=== PATIENT | female | born 1985 | race Caucasian/White ===

== ENCOUNTER → 2017-09-20 | Outpatient (CLI) | payer BC ==
[2017-09-20 13:28] LABS: AUTOMATED NEUTROPHIL # 4.3 TH/MM3 (1.8-7.7); BASOPHIL % 0.3 % (0.0-2.0); EOSINOPHIL # 0.2 TH/MM3 (0-0.4); EOSINOPHIL % 2.7 % (0.0-4.0); HEMATOCRIT 36.3 % (35.0-46.0); HEMOGLOBIN 12.3 GM/DL (11.6-15.3); LYMPH % 28.7 % (9.0-44.0); MEAN CELL VOLUME 87.6 FL (80.0-100.0); MEAN CORPUSCULAR HEMOGLOBIN 29.7 PG (27.0-34.0); MEAN CORPUSCULAR HGB CONC 33.9 % (32.0-36.0); MEAN PLATELET VOLUME 8.8 FL (7.0-11.0); MONO % 6.5 % (0.0-8.0); MONOCYTE # 0.5 TH/MM3 (0-0.9); NEUT % 61.8 % (16.0-70.0); PLATELET COUNT 254 TH/MM3 (150-450); RED BLOOD COUNT 4.15 MIL/MM3 (4.00-5.30); RED CELL DISTRIBUTION WIDTH 12.4 % (11.6-17.2)
[2017-09-20 13:57] LABS: BILIRUBIN, URINE NEG (NEG); GLUCOSE,URINE NEG (NEG); KETONE, URINE NEG (NEG); NITRITE,URINE NEG (NEG); URINE COLOR YELLOW (YELLW/STRAW); URINE LEUKOCYTE ESTERASE NEG (NEG)
[2017-09-20 14:00] LABS: BLOOD, URINE TRACE (NEG); MUCUS URINE FEW /lpf (OCC); SQUAMOUS EPITHELIAL CELL URINE 1 /hpf (0-5)
--- NOTE | 2017-09-21 14:15 | MH ---
cc: Addy Kiser MD DATE OF ADMISSION: 09/20/2017 ADMITTING DIAGNOSIS: Pelvic pain with menorrhagia, dysmenorrhea. HISTORY OF PRESENT ILLNESS: The patient is a 32-year-old single white female, para 0, with a history of increasing menstrual flow and menstrual pain, most dramatic on the first and second days of her cycle. Her Pap smear in January of last year was normal. Her ultrasound of the pelvis done 08/12/2017, suggested a bilateral complex cyst, possible hydrosalpinx. Her laboratory studies from 08/05/2017, were normal except for elevated prolactin of 47.5. She is now admitted for surgical evaluation. PAST MEDICAL HISTORY/PREVIOUS SURGERY: None. MEDICATIONS: Vitamins. ALLERGIES: NONE. TRANSFUSION: None. OB HISTORY: None. SOCIAL HISTORY: She is single. Works in [employer]. Alcohol: Occasional. Tobacco: None. Drugs: None. FAMILY HISTORY: Noncontributory. PHYSICAL EXAMINATION: GENERAL: Well-nourished, well-developed white female. VITAL SIGNS: Stable. HEENT: Normal. CHEST: Clear. HEART: Regular rate. BREASTS: Symmetrical. ABDOMEN: Benign. PELVIC: Normal external genitalia and BUS. Vagina is normal. Cervix normal. Uterus is normal size, shape, anterior. No adnexal masses. ASSESSMENT: As above. She is now admitted for hysteroscopy, D and C, laparoscopy, methylene blue. The risks and benefits, complications explained and accepted. Addy Kiser MD JAW/TL , 02:00 PM , 02:15 PM
--- NOTE | 2017-09-21 16:03 | EKG ---
Date Performed: 09/20/2017 Time Performed: 13:07:23 PTAGE: 32 years EKG: Sinus rhythm NORMAL ECG NO PREVIOUS TRACING DOCTOR: Mary Hinson Interpretating Date/Time 09/21/2017 16:01:25
== END ==
LOC: CPRE 12:35
PROVIDERS: ATTEND Obstetrics & Gynecology
DX: Z01.810 Encounter for preprocedural cardiovascular examination (principal); Z01.812 Encounter for preprocedural laboratory examination; N92.0 Excessive and frequent menstruation with regular cycle; N94.6 Dysmenorrhea, unspecified; N83.201 Unspecified ovarian cyst, right side; N83.202 Unspecified ovarian cyst, left side
CPT/HCPCS: 36415; 81001; 84703; 85025; 93005

== ENCOUNTER → 2017-09-22 | Day surgery (SDC) | payer BC ==
[~2017-09-22] VITALS: Ht 157.5 cm; Wt 76.0 kg
[~2017-09-22] MED LIST: *morphine SULFATE 4 MG/ML PERIprocedure ONLY ONE; ACETAMINOPHEN 1000 MG/100 ML 100 ML IV SCH; BUPIVACAINE/EPINEPHRINE 0.5% PF 10 ML VIAL ONE; CHLORHEXIDINE GLUCONATE 2 % 1 PACK (2 CLOTHS) TOPICAL PRN; CIPROFLOXACIN/DEXT 400 MG/200 ML IV ONE; DEXAMETHASONE SOD PHOS 4 MG/ML VIAL IV ONE; DO NOT ADM ANY ANTICOAGULANT DRUGS PRN; KETOROLAC TROMETHAMINE 30 MG/ML (IVP) VIAL IV PUSH ONE; LACTATED RINGER'S 1000 ML IV PRN; LIDOCAINE HCL 1% PF 5 ML SYRINGE OTHER ONE; METOCLOPRAMIDE HCL 10 MG/2 ML VIAL IV PRN; METOPROLOL TARTRATE 25 MG TAB PO PRN; MIDAZOLAM HCL 2 MG/2 ML VIAL ONE; ONDANSETRON HCL 4 MG/2 ML VIAL IV ONE; POVIDONE IODINE 5% (ANTISEPSIS KIT) 4 APPLICATIONS EACH NARE PRN; PROPOFOL 200 MG/20 ML AMP IV ONE; ROCURONIUM INJ 50 MG/5 ML SYRINGE IV PUSH ONE; SODIUM CHLORID 0.9% 500 ML IV PRN; SUGAMMADEX SODIUM 200 MG/2 ML VIAL IV PUSH ONE; ceFAZolin 2 GM/DEX PREMIX 50 ML IV SCH; oxyCODONE/ACETAMINOPHEN 5 MG/325 MG TAB PO PRN
--- NOTE | 2017-09-22 08:29 | MP ---
cc: Addy Kiser MD DATE OF OPERATION: 09/22/2017 PREOPERATIVE DIAGNOSIS: 1. Menorrhagia. 2. Dysmenorrhea. POSTOPERATIVE DIAGNOSES: 1. Menorrhagia. 2. Dysmenorrhea. 3. Bilateral hydrosalpinx and extensive pelvic adhesions. PROCEDURE PERFORMED: Hysteroscopy, D and C, laparoscopy. ANESTHESIA: General ET. SURGEON: Addy Kiser MD [employer] SALESPERSON: Mulu Bailon ESTIMATED BLOOD LOSS: For the procedure, less than 20 mL. FLUIDS: About 600 mL of crystalloid. OBJECTIVE FINDINGS: Following the induction of adequate general endotracheal anesthesia, the patient was prepped and draped supine on the operating table in the dorsal lithotomy position in the usual sterile fashion with the bladder being drained via catheterization. Exam under anesthesia revealed a normal size, shape, anterior uterus. No adnexal masses. A heavy-weighted speculum was placed in the posterior fornix of vagina. The anterior lip of the cervix was grasped with a single toothed tenaculum. Cervix and uterus sounded to 8 cm. The cervix was then dilated with a #18 Hanks dilator. Hysteroscope was passed revealing a normal endocervix and normal endometrium. Scope was now removed. Endocervical curetting obtained with a small serrated curet, endometrium a small sharp curet and a HUMI was placed. The tenaculum site sutured with 3-0 chromic and the other vaginal instruments removed. The double end tenoner operator's gloves were changed. The abdomen was opened through a 1.5 cm infraumbilical incision. A 5 port was placed, followed by a laparoscope with attached video cam. A second 5 was placed in left lower quadrant. Pelvic contents revealed a normal size and shape uterus. There were extensive adhesions of the omentum to the posterior cul-de-sac. Both tubes showed dilation, but were buried from the distal two-thirds and the adhesions between the omentum and ovaries and the pelvic sidewall and the cul-de-sac. The anterior cul-de-sac had a few filmy adhesions. The appendix was normal. The liver edge was normal. Inspection revealed no evidence of bleeding. The procedure was now terminated. The gas was allowed to escape. The ports removed. Each port site injected with 5 mL of Marcaine 0.5% with epinephrine and closed with 3-0 Monocryl subcuticular stitches. The HUMI was removed from the vagina. The patient's legs taken out of the stirrups. She was awakened and taken to the recovery room in good condition. MD OTILIA Hatch/BRENT , 08:09 AM , 08:28 AM
[2017-09-22 10:25] VITALS: BP 118/74; PULSE 72; RESP 18; TEMP 97.2; O2SAT 97
== END | disposition home or self-care (01) ==
LOC: HSDC 05:30
PROVIDERS: ATTEND Obstetrics & Gynecology
DX: N92.0 Excessive and frequent menstruation with regular cycle (principal); N94.6 Dysmenorrhea, unspecified; N70.11 Chronic salpingitis; N73.6 Female pelvic peritoneal adhesions (postinfective)
CPT/HCPCS: 00952; 58558; 88305; J0131; J0690; J0744; J2250; J2270; J2765; J3010; J7120; J1100; J1885; J2405